=== PATIENT | male | born 1985 | race Hispanic/Latino ===

== ENCOUNTER 2022-06-04 09:33 | Emergency (ER) | payer MEDICAID ==
[~2022-06-04] VITALS: Ht 167.6 cm; Wt 56.7 kg
[2022-06-04] MEDS ORDERED: LORAZEPAM 2 MG/ML 1 ML VIAL IM ONE (10:00)
[2022-06-04] MEDS ORDERED: DiphenhydrAMINE HCL 50 MG/ML VIAL IM ONE (10:00)
[2022-06-04] MEDS ORDERED: ZIPRASIDONE MESYLATE 20 MG/VIAL IM SCH (10:00)
[2022-06-04] MEDS ORDERED: PHARMACY COMMUNICATION MISC SCH (10:11)
[2022-06-04 13:47] VITALS: BP 117/73
== END 2022-06-04 13:48 | disposition home or self-care (01) ==
LOC: EDH 09:33
DX: M25.551 Pain in right hip (principal)
CPT/HCPCS: 99284; 73502; 96372 ×3; J1200; J2060; J3486

== ENCOUNTER 2023-12-05 08:36 | Day surgery (SDC) | payer MEDICAID ==
[2023-12-05] VITALS (7 sets, daily range): BP systolic 91–106; BP diastolic 47–64; PULSE 64–85; RESP 14–17
[~2023-12-05] VITALS: Ht 165.1 cm; Wt 56.7 kg
[~2023-12-05 08:36] MED LIST: 0.9%NACL 1000ML 1,000 ML IV ONE; ALPR0.5T8 PO; IBUP-2070 PO; LUMA42CA PO; OLAN15TA36 PO; OLAN20TA35 PO; OXCA600T18 PO
[2023-12-05] MEDS ORDERED: PROPOFOL 10 MG/ML 20ML VIAL IV ONE (10:55)
== END 2023-12-05 12:04 | disposition home or self-care (01) ==
LOC: ENDO 08:36 → DAH 08:36 → ENDO 12:04
PROVIDERS: ATTEND Internal Medicine Gastroenterology
DX: R13.10 Dysphagia, unspecified (principal); R63.4 Abnormal weight loss; K22.2 Esophageal obstruction; K21.00 Gastro-esophageal reflux disease with esophagitis, without bleeding; F41.9 Anxiety disorder, unspecified; F32.A Depression, unspecified; F89 Unspecified disorder of psychological development; Z79.899 Other long term (current) drug therapy; Z79.01 Long term (current) use of anticoagulants; Z98.49 Cataract extraction status, unspecified eye; Z98.890 Other specified postprocedural states; Z68.20 Body mass index [BMI] 20.0-20.9, adult
CPT/HCPCS: 43249; 43239; J7030 ×2; J3490; C1726; A4620; A4215; A4223; A4657; A7002; A4222; A4221; A4663; A4606; J2704

== ENCOUNTER 2025-07-12 10:25 | Emergency (ER) | payer MEDICAID ==
[~2025-07-12] VITALS: Ht 167.6 cm; Wt 56.7 kg
[~2025-07-12 10:25] MED LIST changes: -0.9%NACL 1000ML 1,000 ML IV ONE; +IBUP-1492 PO; -IBUP-2070 PO; -LUMA42CA PO; +LUMA42CA4 PO; -OLAN15TA36 PO; +OLAN15TA98 PO; -OLAN20TA35 PO; +OLAN20TA82 PO
[2025-07-12 10:27] VITALS: TEMP 98.1
--- NOTE | 2025-07-12 10:53 | NUR ---
PER TRIAGE NURSE FLAKITO RN, PT HAS MENTAL DELAY, PT IS COMBATIVE, DID NOT ALLOW HER TO TAKE HIS VITALS IN TRIAGE ROOM, MOTHER AT BEDSIDE STATES PT HAS TO BE SEDATED TO GET IV OR OBTAIN VITALS, ANY INTERVETION, PT WILL HIT OR KICK.
--- NOTE | 2025-07-12 11:10 | ERN ---
ED Note History of Present Illness Stated Complaint: RT HIP PAIN PER MOM Chief Complaint: Hip Pain/Injury Time Seen by MD: 10:28 Time Seen by Midlevel: 10:30 Dictation: 39-year-old male with a history of developmental delay, seizures coming in for evaluation of fried hip pain. As per mother there has been no trauma however patient has been limping on his right for the last two weeks and states for the last two days he has a double tapping his right leg this is he is unsure. With the also states patient has a occasional moaning. Patient states these symptoms are similar to when he had to have a hip revision done three years ago. Allergies: Coded Allergies: No Known Allergies (Unverified Allergy, Unknown, 06/04/22) Home Meds Reported Medications Alprazolam (Alprazolam) 0.5 Mg Tablet, 0.5 MG PO AM, TAB 12/04/23 Lumateperone Tosylate (Caplyta) 42 Mg Capsule, 42 MG PO AM, CAP 12/04/23 Olanzapine (Olanzapine) 15 Mg Tablet, 15 MG PO HS, TAB 12/04/23 Olanzapine (Olanzapine) 20 Mg Tablet, 20 MG PO AM, TAB 12/04/23 Ibuprofen (Ibuprofen) 600 Mg Tablet, 600 MG PO AM PRN for PAIN, TAB 12/04/23 Oxcarbazepine (Oxcarbazepine) 600 Mg Tablet, 600 MG PO BID, TAB 12/04/23 Past Medical History Past Medical History: Seizure Additional Past Medical Hx: DEVEOPMENTAL DELAYS, INCONTINENT Surgical History: Other Surgical History Other: RT HIP, BILATERAL EYES Family History: Negative Social History: Negative Review of System Dictation Constitutional: Negative for fever,chills, and weight loss Eyes: Negative for injury, pain,redness, and discharge ENT: Negative for injury,pain or swelling Cardiovascular: Negative for chest pain, palpitations, and edema Respiratory: Negative for shortness of breath, cough, and wheezing, Abdomen/GI: Negative for abdominal pain, nausea, vomiting, diarrhea, and constipation Back: Negative for injury and pain : Negative for injury, bleeding and discharge MS/Extremity: Negative for injury and deformity Skin: Negative for rash, and discoloration Neuro: Negative for headache, weakness, numbness, tingling, and seizure , right hip pain Psych: Negative for suicide ideation, homicidal ideation, and hallucinations Review of Systems: was completed Initial Vital Sign VS Vital Signs Date Time Temp Pulse Resp B/P (MAP) Pulse Ox O2 Delivery O2 Flow Rate FiO2 07/12/25 10:27 98.1 16 Room Air 0 07/12/25 12:00 75 127/75 99 21 Physical Exam Dictation General: awake, alert, NAD Head/Face: Normocephalic, atraumatic Eyes: PERRL, EOMI, vision at baseline ENT: oral cavity clear, TMs clear, no signs of infection Neck: Trachea midline, supple, no nuchal rigidity Cardiovascular: RRR, normal S1/S2, No MRGs, no JVD Respiratory: CTAB, no respiratory distress, No rales or wheezes Abdomen: Soft, non-tender, non-distended, normal bowel sounds, no guarding or rebound. Skin: Warm, dry, normal turgor, no rash MS/Extremity: Pulses equal, no cyanosis, neurovascular intact, FROM Neuro: COAx4, GCS 15, strength 5/5, CN 2-12 intact, normal cerebellar exam, normal gait, Psych: Normal behavior, mood, and affect normal Results (Laboratory/Radiology) CT Scan Comment: [place] [id number] [address] IMAGING REPORT Signed PATIENT: DURGA POE MR#: [id number] : 1985 SEX: M AGE: 39 LOCATION: [facility] ORDER 1041 STATUS: [facility] REPORT#: [id number] SERVICE 1040 REASON: right hip pain, previous revision hip surgery ORDERING PHYSICIAN: RIKI ABBOTT CNP PROCEDURE: PELVIS WO - CT PELVIS W/O CONTRAST EXAM: CT Pelvis without IV contrast CLINICAL HISTORY: right hip pain, previous revision hip surgery TECHNIQUE: Axial computed tomography images of the pelvis without intravenous contrast. CONTRAST: without intravenous contrast. COMPARISON: None provided. FINDINGS: APPENDIX: No evidence of acute appendicitis on CT examination. PERITONEUM: No free fluid. No free air. LYMPH NODES: No lymphadenopathy is evident. REPRODUCTIVE: Unremarkable as visualized. VASCULATURE: No evidence of abdominal aortic aneurysm. BONES: No aggressive appearing osseous lesion. No acute osseous pathology is evident. Right hip prosthesis in place. No dislocation or displacement. No bess-prosthesis lucency. IMPRESSION: 1. No acute pelvic pathology. 2. Right hip prosthesis in place without evidence of complication. /[facility] ED Course ED Course Orders Procedure Category Date Status Time Diphenhydramine Hcl PHA 07/12/25 Complete (Benadryl Inj) 11:00 Ct Pelvis W/O Contrast CT 07/12/25 Resulted 10:40 Ketamine 50mg/Ml PHA 07/12/25 Complete Syringe (Ketamine 11:24 Ondansetron Odt 4mg PHA 07/12/25 Complete Tab (Zofran 4mg Odt) 13:00 Current Medications Medications (Trade) Dose Ordered Sig/William Route PRN Reason Start Time Stop Time Status Last Admin Dose Admin Diphenhydramine HCl (BENAdryl INJ) 25 mg ONCE ONCE IM 07/12/25 11:00 07/12/25 11:01 DC 07/12/25 10:45 Ketamine HCl (ketaMINE 50MG/ ML SYRINGE) 100 mg ONCE STAT IM 07/12/25 11:24 07/12/25 11:30 DC 07/12/25 13:13 Ondansetron HCl (zoFRAN 4MG ODT) 4 mg ONCE ONCE SL 07/12/25 13:00 07/12/25 13:01 DC 07/12/25 13:01 Vital Signs Date Time Temp Pulse Resp B/P (MAP) Pulse Ox O2 Delivery O2 Flow Rate FiO2 07/12/25 13:04 76 17 120/72 99 Room Air* 0 21 07/12/25 12:00 75 18 127/75 99 Room Air* 0 21 07/12/25 10:27 98.1 16 Room Air 0 Medical Decision Making MDM MDM: 39-year-old male with a history of developmental delay, seizures coming in for evaluation of fried hip pain. As per mother there has been no trauma however patient has been limping on his right for the last two weeks and states for the last two days he has a double tapping his right leg this is he is unsure. With the also states patient has a occasional moaning. Patient states these symptoms are similar to when he had to have a hip revision done three years ago. Patient's mother states patient usually has to be sedated to get any imaging done. Patient received ketamine to be able to do a CT scan. CT scan of the pelvis shows no acute finding. Discussed findings with the mother. Educated mother is probably just joint pain from the surgery you can give Tylenol or Motrin [id number] for pain control and follow up with PCP. Mother verbalized understanding. Answered all questions. Patient's vital signs are stable, awake and alert and back to baseline prior to discharge. Differential diagnosis: Pathological fracture, dislocation, musculoskeletal pain Rationale: Tests considered and ordered secondary to shared decision making include: Previous outside records reviewed: Old ER visits. Risk of complication and/or morbidity or mortality of patient management: None Medications-Per medication reconciliation Need for hospitalization: Patient does not meet criteria for hospitalization. Need for emergency major/minor surgery: No There are no social concerns with this patient. Prescription drug management Prescriptions will include symptomatic care Patient's prior external medical records from other ER visits were reviewed by me as indicated. Prior testing and results from previous visits were reviewed. Prior tests were taken into account with medical decision making and resource utilization, independent historian/historians were used to obtain complete medical history. I independently interpreted the test that were performed, results were reviewed by me and considered findings on radiology if ordered. Medical management and examination interpretation discussions were had by me with other qualified healthcare professionals as indicated for the patient's care. DX & DISP Disposition: Discharge Departure Impression: Primary Impression: Arthralgia Condition: Stable Additional Instructions: Can take Tylenol or Motrin [id number] for pain control. Follow up with his primary care provider in 1-2 days. Return to the hospital for worsening symptoms. Referrals: SELF,REFERRAL (PCP) Time of Disposition: 14:22 I have reviewed the case, and I agree with, Diagnosis and Plan RIKI ABBOTT [facility] Jul 12, 2025 11:10
--- NOTE | 2025-07-12 11:37 | NUR ---
CT DELAY DUE TO PT UNCOOPERATIVE
[2025-07-12 13:04] VITALS: BP 120/72; PULSE 76; RESP 17; O2SAT 99
--- NOTE | 2025-07-12 13:16 | NUR ---
KENTAMINE 50MG IM ADMINISTERED AT 1158. HALF DOSE NEEDED. RETURNED SECOND SYRINGE, JAME DOUGHERTYAUDIO VISUAL DIRECTOR NURSE WITNESS, QUINTON PHARMACIST AWARE.
--- NOTE | 2025-07-12 13:55 | HMCIMG ---
EXAM: CT Pelvis without IV contrast CLINICAL HISTORY: right hip pain, previous revision hip surgery TECHNIQUE: Axial computed tomography images of the pelvis without intravenous contrast. CONTRAST: without intravenous contrast. COMPARISON: None provided. FINDINGS: APPENDIX: No evidence of acute appendicitis on CT examination. PERITONEUM: No free fluid. No free air. LYMPH NODES: No lymphadenopathy is evident. REPRODUCTIVE: Unremarkable as visualized. VASCULATURE: No evidence of abdominal aortic aneurysm. BONES: No aggressive appearing osseous lesion. No acute osseous pathology is evident. Right hip prosthesis in place. No dislocation or displacement. No bess-prosthesis lucency. IMPRESSION: 1. No acute pelvic pathology. 2. Right hip prosthesis in place without evidence of complication. /[facility]
== END 2025-07-12 15:35 | disposition home or self-care (01) ==
LOC: EDH 10:25
DX: M25.551 Pain in right hip (principal); Z79.899 Other long term (current) drug therapy; Z96.641 Presence of right artificial hip joint; Z98.890 Other specified postprocedural states
CPT/HCPCS: 99285; 72192; 96372 ×2; J1200; J3490